=== PATIENT | female | born 1995 | race Caucasian/White ===

== ENCOUNTER 2017-03-09 15:54 | Emergency (ER) | payer SELFPAY ==
[~2017-03-09] VITALS: Ht 172.7 cm; Wt 56.9 kg
[2017-03-09 15:56] VITALS: Ht 172.7 cm; Wt 56.9 kg
--- NOTE | 2017-03-09 17:52 | RADRPT ---
PROCEDURE: XR Lumbar Spine. CLINICAL INDICATION: Low back pain . TECHNIQUE: 3 views of the lumbar spine are available for review COMPARISON: None available FINDINGS: The normal lumbar lordosis is preserved. Alignment is intact. No acute fracture or dislocation is seen. The vertebral body heights are all normal. The intervertebral disk heights are well preserve d. The posterior elements are intact. Paraspinous soft tissues are grossly unremarkable. IMPRESSION: Unremarkable lumbar spine x-ray series. RPTAT: HH .Annalee Chan MD, Date Time Electronically viewed and signed by .Annalee Chan MD, on 03/09/2017 17:52 .G/
[2017-03-09] MEDS ORDERED: ORPH100T PO (18:08)
[2017-03-09] MEDS ORDERED: IBUP-1542 PO (18:08)
--- NOTE | 2017-03-09 19:35 | ERD ---
ER Documentation Chief Complaint Chief Complaint back pain x 6 days HPI This is a 21-year-old female presents to the ER with back pain that started on Friday after she was moving boxes at work. Patient states that pain is throbbing in quality it is nonradiating, she tried doing exercises that she found on [employer] and she states that this helped. Patient denies any urinary bowel incontinence she denies any saddle like anesthesia. She denies any IV drug use, however does smoke marijuana. ROS 12 point review of systems was done, all negative except per HPI. Medications Home Meds Active Scripts Orphenadrine Citrate (Norflex) 100 Mg Tablet.sa, 100 MG PO BID for 3 Days, TAB.SA Prov:KENISHA,SABINA C 03/09/17 Ibuprofen* (Motrin*) 600 Mg Tab, 600 MG PO Q6, #30 TAB Prov:KENISHA,SABINA C 03/09/17 Allergies Allergies: Coded Allergies: No Known Drug Allergies (Verified Allergy, Mild, 04/09/14) PMhx/Soc History of Surgery: No Anesthesia Reaction: No Hx Neurological Disorder: No Hx Respiratory Disorders: No Hx Cardiac Disorders: No Hx Psychiatric Problems: No Hx Miscellaneous Medical Probl: No Hx Alcohol Use: No Hx Substance Use: No Hx Tobacco Use: No Smoking Status: Never smoker Physical Exam Vitals Vital Signs Date Time Temp Pulse Resp B/P Pulse Ox O2 Delivery O2 Flow Rate FiO2 03/09/17 15:56 98.0 86 16 153/83 99 Physical Exam GENERAL: The patient is well developed and appropriate for usual state of health , in no apparent distress. NECK: C-spine is soft and supple. There is no cervical lymphadenopathy. CHEST: Clear to auscultation bilaterally. There are no rales, wheezes or rhonchi. HEART: Regular rate and rhythm. No murmurs, clicks, rubs or gallops. ABDOMEN: Soft, nontender and nondistended. Good bowel sounds. No rebound or guarding. No gross peritonitis. No gross organomegaly or masses. No Ocampo sign or McBurney point tenderness. No pulsatile abdominal mass. BACK: No midline or flank tenderness. Tender to palpation from L3-L5. Tense paraspinal muscles. Negative leg raise test. No step- offs. EXTREMITIES: Equal pulses bilaterally. There is no peripheral clubbing, cyanosis or edema. No focal swelling or erythema. Full range of motion. Grossly neurovascularly intact. NEURO: Alert and oriented. Cranial nerves II through XII are intact. Motor strength in all 4 extremities with 5/5 strength. Sensation grossly intact. Normal speech and gait. SKIN: There is no apparent rash or petechia. The skin is warm and dry. Procedures/MDM Differential Diagnosis includes but is not limited to back strain, vertebral fracture, epidural abscess, cauda equina, herniated disc, AAA rupture, kidney stones, UTI, pyelonephritis. Likely back strain, patient had full range of motion of her back, and does not have any pain at the time of examination. Negative for fractures or dislocations. Suspicion for epidural abscess, cauda equina, discitis is low. Patient is afebrile and well-appearing. She will be sent home with ibuprofen and Norflex. She is follow-up with her primary care doctor within 1-2 days return to ER sooner if symptoms worsen. Medical decision making shared with the patient she understands and agrees with plan. Departure Diagnosis: Primary Impression: Back pain Condition: Stable Patient Instructions: Back Pain (Acute Or Chronic) Referrals: WAYLON VANCE (PCP) Additional Instructions: Call your primary care doctor TOMORROW for an appointment during the next 1-2 days.See the doctor sooner or return here if your condition worsens before your appointment time. SABINA DE Mar 09, 2017 19:35
== END 2017-03-09 18:10 | disposition home or self-care (01) ==
LOC: FTE 15:54
DX: M54.5 Low back pain (principal)
CPT/HCPCS: 72100